=== PATIENT | female | born 2000 | race American Indian/Alaskan Native ===

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

== ENCOUNTER 2021-01-11 06:58 | Inpatient (IN) | payer MEDICAID ==
[2021-01-11] MEDS ORDERED: Misoprostol 400 MCG (4 X 100 MCG TAB) RECTAL PRN ×3 (09:00→23:02)
[2021-01-11] MEDS ORDERED: Methylergonovine 0.2 MG/1 ML Amp IM PRN (09:00)
[2021-01-11] MEDS ORDERED: Ondansetron 4 MG/2 ML SDV IVPUSH PRN ×2 (09:00→09:05)
[2021-01-11] MEDS ORDERED: Oxytocin/Normal Saline 30 UNIT/500 ML BAG IV SCH (09:00)
[2021-01-11] MEDS ORDERED: fentaNYL 100 MCG/2 ML SDV IVPUSH PRN (09:00)
[2021-01-11] MEDS ORDERED: Carboprost Tromethamine 250 MCG/1 ML Amp IM PRN ×3 (09:00→23:02)
[2021-01-11] MEDS ORDERED: Lidocaine 1% 30 ML SDV INJECT PRN (09:00)
[2021-01-11] MEDS ORDERED: Tranexamic Acid 1,000 MG in Sodium Chloride 0.9% 100 ML IV PRN ×3 (09:00→23:02)
[2021-01-11] MEDS ORDERED: Sodium Chloride 0.9% 10 ML Syringe FLUSH PRN ×3 (09:00→23:02)
[2021-01-11] MEDS ORDERED: Naloxone 2 MG/2 ML Syringe IVPUSH PRN (09:05)
[2021-01-11] MEDS ORDERED: ePHEDrine 50 MG/ML SDV IVPUSH PRN (09:05)
[2021-01-11] MEDS ORDERED: Promethazine 25 MG/ML SDV IM PRN (09:05)
[2021-01-11] MEDS ORDERED: Lactated Ringers 500 ML IV SCH ×2 (09:15)
[2021-01-11] MEDS: Lactated Ringers 1,000 ML IV SCH ×2 (09:25→18:23)
--- NOTE | 2021-01-11 12:26 | PCM.LDHP ---
L&D History of Present Illness - General Date of Service: 01/11/21 Admit Problem/Dx: Patient Status Order with Admit Dx/Problem 01/11/21 09:00 Patient Status [ADT] Routine Admission Diagnosis/Problem Admission Diagnosis/Problem High risk Source of Information: Patient - History of Present Illness Introduction:: Oksana Prince is a 21 year old female at 39w0d who presents today for induction of labor. She states things have been going well. She has had an intermittent headache since about 30 weeks. She feels this is improved. She has no concerns today. She has been feeling adequate movement. She denies any contractions, leakage of fluid, or vaginal bleeding. Her last was complicated by HELLP syndrome. Liver enzymes have been elevated this but are downtrending. Last PCR was 0.2 - Related Data Allergies/Adverse Reactions: Allergies Allergy/AdvReac Type Severity Reaction Status Date / Time No Known Allergies Allergy Verified 01/11/21 08:13 Home Medications: Home Meds Acetaminophen [Tylenol] 650 mg PO Q4H 03/05/16 [History] #103/Iron Fumarate/Fa [ ] 1 tab PO DAILY 07/23/20 [History] Past Medical History - Past Health History Medical/Surgical History: Denies Medical/Surgical History HEENT History: Reports: Otitis Media, Other (See Below) Other HEENT History: recurrent upper respiratory infections Cardiovascular History: Reports: Hypertension Other Cardiovascular History: HELLP syndrome with last Respiratory History: Reports: Asthma Gastrointestinal History: Reports: Other (See Below) Other Gastrointestinal History: HELLP syndrome with elevated liver enzymes last Genitourinary History: Reports: [employer] History: Reports: Musculoskeletal History: Reports: None Neurological History: Reports: None Psychiatric History: Reports: Depression Endocrine/Metabolic History: Reports: None Hematologic History: Reports: Other (See Below) Other Hematologic History: HELLP syndrome with last Immunologic History: Reports: None Oncologic (Cancer) History: Reports: None Dermatologic History: Reports: None - Infectious Disease History Infectious Disease History: Reports: None - Past Surgical History Head Surgeries/Procedures: Reports: None HEENT Surgical History: Reports: None Cardiovascular Surgical History: Reports: None Respiratory Surgical History: Reports: None GI Surgical History: Reports: Appendectomy Female Surgical History: Reports: None Other Female Surgeries/Procedures: 05/03/2018 IUD for Control. Endocrine Surgical History: Reports: None Neurological Surgical History: Reports: None Musculoskeletal Surgical History: Reports: None Oncologic Surgical History: Reports: None Dermatological Surgical History: Reports: None Social & Family History - Family History Family Medical History: No Pertinent Family History - Tobacco Use Tobacco Use Status *Q: Never Tobacco User - Caffeine Use Caffeine Use: Reports: Soda - Recreational Drug Use Recreational Drug Use: No - Living Situation & Occupation Living situation: Reports: with Family Occupation: Student H&P Review of Systems - Review of Systems: Review Of Systems: See Below General: Denies: Fever, Chills HEENT: Denies: Visual Changes Pulmonary: Denies: Shortness of Breath, Wheezing Cardiovascular: Denies: Chest Pain Gastrointestinal: Denies: Abdominal Pain, Nausea, Vomiting Genitourinary: Denies: Dysuria, Frequency, Burning Skin: Denies: Cyanosis, Rash L&D Exam - Exam Exam: See Below - Vital Signs Vital Signs: Last Vital Signs Temp 97.7 F 01/11/21 09:30 Pulse 92 01/11/21 11:30 Resp 16 01/11/21 11:30 BP 116/91 H 01/11/21 11:30 Pulse Ox Weight: 199 lb - OB Specific Contraction Duration (sec): 60 Contraction Frequency (min): 3.5-5 Contraction Intensity: Mild to Moderate Heart Tones per Min: 135 Heart Rate (FHR) Variability: Moderate (6-25 bmp) Presentation: Vertex - Rosado Score Rosado Score Cervix Position: Midposition Rosado Score Consistency: Firm Rosado Score Effacement: 51-70% Rosado Score Dilation: 3-4 cm Rosado Score 's Station: -2 Rosado Score Total: 6 - Exam General: Alert, Oriented HEENT: Conjunctiva Clear, Pupils Equal Neck: Supple Lungs: Clear to Auscultation, Normal Respiratory Effort Cardiovascular: Regular Rate, Regular Rhythm GI/Abdominal Exam: Normal Bowel Sounds, Soft Skin: Warm, Dry Psychiatric: Alert, Normal Mood - Patient Data Lab Results Last 24 hrs: Laboratory Results - last 24 hr 01/11/21 01/11/21 Range/Units 07:15 07:59 WBC 15.4 H (5.0-10.0) 10^3/uL RBC 4.72 (4.2-5.4) 10^6/uL Hgb 12.7 (12.0-16.0) g/dL Hct 38.5 (37.0-47.0) % MCV 81.6 (80-100) fL MCH 26.9 L (27.0-34.0) pg MCHC 33.0 (33.0-35.0) g/dL Plt Count 182 (150-450) 10^3/uL SARS-CoV-2 RNA (MARKY) Negative (NEGATIVE) Result Diagrams: 01/11/21 07:59 Problem List Initiated/Reviewed/Updated: Yes Orders Last 24hrs: Active Orders 24 hr Category Date Time Status Patient Status [ADT] Routine ADT 01/11/21 09:00 Active Communication Order [RC] ASDIRECTED Care 01/11/21 09:00 Active Communication Order [RC] ASDIRECTED Care 01/11/21 09:03 Active Communication Order [RC] ASDIRECTED Care 01/11/21 09:03 Active Communication Order [RC] ASDIRECTED Care 01/11/21 09:03 Active Communication Order [RC] ASDIRECTED Care 01/11/21 09:03 Active Communication Order [RC] PER UNIT ROUTINE Care 01/11/21 09:05 Active Communication Order [RC] PER UNIT ROUTINE Care 01/11/21 09:05 Active Communication Order [RC] PER UNIT ROUTINE Care 01/11/21 09:05 Active Communication Order [RC] PER UNIT ROUTINE Care 01/11/21 09:08 Active Communication Order [RC] PER UNIT ROUTINE Care 01/11/21 09:08 Active Communication Order [RC] PER UNIT ROUTINE Care 01/11/21 09:08 Active Heart Rate [RC] Click to Edit Care 01/11/21 09:05 Active Nitrous Oxide Delivery [RC] ASDIRECTED Care 01/11/21 09:08 Active Notify Provider Vital Signs OB [RC] ASDIRECTED Care 01/11/21 09:00 Active Notify Provider [RC] PRN Care 01/11/21 09:00 Active Notify Provider [RC] PRN Care 01/11/21 09:03 Active Oxygen Therapy [RC] ASDIRECTED Care 01/11/21 09:08 Active Pulse Oximetry [RC] ASDIRECTED Care 01/11/21 09:08 Active Pump Management, Intrathecal [RC] ASDIRECTED Care 01/11/21 09:01 Active Up With Assistance [RC] ASDIRECTED Care 01/11/21 09:05 Active Up ad Grisel [RC] ASDIRECTED Care 01/11/21 09:00 Active Up ad Grisel [RC] PER UNIT ROUTINE Care 01/11/21 09:03 Active Vaginal Exam [RC] PRN Care 01/11/21 09:03 Active Verify Patient Consent Obtain [RC] ASDIRECTED Care 01/11/21 09:05 Active Verify Patient Consent Obtain [RC] ASDIRECTED Care 01/11/21 09:08 Active Vital Signs [RC] PER UNIT ROUTINE Care 01/11/21 09:00 Active Regular Diet [DIET] Diet 01/11/21 Breakfast Active Acetaminophen [TylenoL] Med 01/11/21 09:00 Active 650 mg PO Q4H PRN Carboprost Tromethamine [Hemabate DS] Med 01/11/21 09:00 Active 250 mcg IM ASDIRECTED PRN Lactated Ringers [Ringers, Lactated] 1,000 ml Med 01/11/21 09:00 Active IV ASDIRECTED Lactated Ringers [Ringers, Lactated] 500 ml Med 01/11/21 09:15 Active IV .BOLUS Lactated Ringers [Ringers, Lactated] 500 ml Med 01/11/21 09:15 Active IV SEECOMMENT Lidocaine 1% [Xylocaine-MPF 1%] Med 01/11/21 09:00 Active 30 ml INJECT ASDIRECTED PRN Methylergonovine [Methergine] Med 01/11/21 09:00 Active 0.2 mg IM ASDIRECTED PRN Naloxone [Narcan] Med 01/11/21 09:05 Active 0.1 mg IVPUSH SEECOMMENT PRN Ondansetron [Zofran] Med 01/11/21 09:00 Active 4 mg IVPUSH Q4H PRN Oxytocin/Normal Saline [Pitocin in NS 30 UNIT/500 ML] Med 01/11/21 09:00 Active 30 unit in 500 ml IV TITRATE Promethazine [Phenergan] Med 01/11/21 09:05 Active 12.5 mg IM Q6H PRN Sodium Chloride 0.9% [Saline Flush] Med 01/11/21 09:00 Active 10 ml FLUSH ASDIRECTED PRN Tranexamic Acid [Cyklokapron] 1,000 mg Med 01/11/21 09:00 Active Sodium Chloride 0.9% [Normal Saline] 100 ml IV ONETIME ePHEDrine [ePHEDrine sulfate] Med 01/11/21 09:05 Active 5 mg IVPUSH Q5M PRN fentaNYL [Sublimaze] Med 01/11/21 09:00 Active 100 mcg IVPUSH Q1H PRN miSOPROStoL [Cytotec] Med 01/11/21 09:00 Active 800 mcg RECTAL ASDIRECTED PRN Blood Pressure [OM.PC] Routine Oth 01/11/21 09:05 Ordered Saline Lock Insert [OM.PC] Routine Oth 01/11/21 09:00 Ordered Resuscitation Status Routine Resus Stat 01/11/21 09:00 Ordered Medication Orders Acetaminophen (Acetaminophen 325 Mg Tab) 650 mg PO Q4H PRN PRN Reason: Pain (Mild 1-3) and fever Carboprost Tromethamine (Carboprost Tromethamine 250 Mcg/1 Ml Amp) 250 mcg IM ASDIRECTED PRN PRN Reason: HEMORRHAGE Ephedrine Sulfate (Ephedrine 50 Mg/Ml Sdv) 5 mg IVPUSH Q5M PRN PRN Reason: See Label Comments Fentanyl (Fentanyl 100 Mcg/2 Ml Sdv) 100 mcg IVPUSH Q1H PRN PRN Reason: Pain (moderate 4-6) Lactated Ringer's (Ringers, Lactated) 1,000 mls @ 125 mls/hr IV ASDIRECTED RUBEN Last Admin: 01/11/21 09:25 Dose: 125 mls/hr Documented by: ERICROX Tranexamic Acid 1,000 mg/ (Sodium Chloride) 110 mls @ 660 mls/hr IV ONETIME PRN PRN Reason: Bleeding Oxytocin/Sodium Chloride (Pitocin In Ns 30 Unit/500 Ml) 30 unit in 500 mls @ 2 mls/hr IV TITRATE RUBEN; Protocol Last Titration: 01/11/21 11:00 Dose: 6 munits/min, 6 mls/hr Documented by: Titration: 01/11/21 10:00 Dose: 4 munits/min, 4 mls/hr Documented by: Admin: 01/11/21 09:25 Dose: 2 munits/min, 2 mls/hr Documented by: ERICROX Lactated Ringer's (Ringers, Lactated) 500 mls @ 999 mls/hr IV SEECOMMENT RUBEN Lactated Ringer's (Ringers, Lactated) 500 mls @ 999 mls/hr IV .BOLUS RUBEN Lidocaine HCl (Lidocaine 1% 30 Ml Sdv) 30 ml INJECT ASDIRECTED PRN PRN Reason: Perineal Repair Methylergonovine Maleate (Methylergonovine 0.2 Mg/1 Ml Amp) 0.2 mg IM ASDIRECTED PRN PRN Reason: Hemorrhage Misoprostol (Misoprostol 400 Mcg (4 X 100 Mcg Tab)) 800 mcg RECTAL ASDIRECTED PRN PRN Reason: Hemorrhage Naloxone HCl (Naloxone 2 Mg/2 Ml Syringe) 0.1 mg IVPUSH SEECOMMENT PRN PRN Reason: Respiratory Depression Ondansetron HCl (Ondansetron 4 Mg/2 Ml Sdv) 4 mg IVPUSH Q4H PRN PRN Reason: Nausea/Vomiting Promethazine HCl (Promethazine 25 Mg/Ml Sdv) 12.5 mg IM Q6H PRN PRN Reason: Nausea/Vomiting Sodium Chloride (Sodium Chloride 0.9% 10 Ml Syringe) 10 ml FLUSH ASDIRECTED PRN PRN Reason: Keep Vein Open Assessment/Plan Comment:: Assessment: Oksana Prince is a 21 year old female here for induction of labor, complicated by elevated liver enzymes and headache. History of HELLP in prior . heart tones category 1. 1. 39 weeks gestation 2. GBS negative status 3. Elevated liver enzymes which are downtrending, liver ultrasound WNL 4. Headaches in 5. History of pre-eclampsia in prior 6. History of HELLP in prior Plan: 1. We'll admit to labor and delivery for induction of labor in term 2. Obtain CBC 3. Monitor with EFM and [place] 4. Will place IV and start Pitocin 5. Plan for AROM when able 6. Expect
--- NOTE | 2021-01-11 12:43 | PCM.PNLD ---
Labor Progress Note - VS & Meds Vital Signs: Last Vital Signs Temp 97.7 F 01/11/21 09:30 Pulse 92 01/11/21 11:30 Resp 16 01/11/21 11:30 BP 116/91 H 01/11/21 11:30 Pulse Ox Active Medications: Current Medications Acetaminophen (Acetaminophen 325 Mg Tab) 650 mg PO Q4H PRN PRN Reason: Pain (Mild 1-3) and fever Carboprost Tromethamine (Carboprost Tromethamine 250 Mcg/1 Ml Amp) 250 mcg IM ASDIRECTED PRN PRN Reason: HEMORRHAGE Ephedrine Sulfate (Ephedrine 50 Mg/Ml Sdv) 5 mg IVPUSH Q5M PRN PRN Reason: See Label Comments Fentanyl (Fentanyl 100 Mcg/2 Ml Sdv) 100 mcg IVPUSH Q1H PRN PRN Reason: Pain (moderate 4-6) Lactated Ringer's (Ringers, Lactated) 1,000 mls @ 125 mls/hr IV ASDIRECTED RUBEN Last Admin: 01/11/21 09:25 Dose: 125 mls/hr Documented by: Tranexamic Acid 1,000 mg/ (Sodium Chloride) 110 mls @ 660 mls/hr IV ONETIME PRN PRN Reason: Bleeding Oxytocin/Sodium Chloride (Pitocin In Ns 30 Unit/500 Ml) 30 unit in 500 mls @ 2 mls/hr IV TITRATE [facility]; Protocol Last Titration: 01/11/21 11:00 Dose: 6 munits/min, 6 mls/hr Documented by: Lactated Ringer's (Ringers, Lactated) 500 mls @ 999 mls/hr IV SEECOMMENT RUBEN Lactated Ringer's (Ringers, Lactated) 500 mls @ 999 mls/hr IV .BOLUS [facility] Lidocaine HCl (Lidocaine 1% 30 Ml Sdv) 30 ml INJECT ASDIRECTED PRN PRN Reason: Perineal Repair Methylergonovine Maleate (Methylergonovine 0.2 Mg/1 Ml Amp) 0.2 mg IM ASDIRECTED PRN PRN Reason: Hemorrhage Misoprostol (Misoprostol 400 Mcg (4 X 100 Mcg Tab)) 800 mcg RECTAL ASDIRECTED PRN PRN Reason: Hemorrhage Naloxone HCl (Naloxone 2 Mg/2 Ml Syringe) 0.1 mg IVPUSH SEECOMMENT PRN PRN Reason: Respiratory Depression Ondansetron HCl (Ondansetron 4 Mg/2 Ml Sdv) 4 mg IVPUSH Q4H PRN PRN Reason: Nausea/Vomiting Promethazine HCl (Promethazine 25 Mg/Ml Sdv) 12.5 mg IM Q6H PRN PRN Reason: Nausea/Vomiting Sodium Chloride (Sodium Chloride 0.9% 10 Ml Syringe) 10 ml FLUSH ASDIRECTED PRN PRN Reason: Keep Vein Open Discontinued Medications Lactated Ringer's (Ringers, Lactated) 1,000 mls @ 999 mls/hr IV BOLUS ONE Stop: 01/11/21 10:00 - Uterine Contractions Uterine Monitoring Mode: External [place], Palpation Contraction Frequency (min): 3.5-5 Contraction Duration (sec): 60 Contraction Intensity: Mild to Moderate Uterine Resting Tone: Soft - Monitoring Heart Rate (FHR) Baseline: 130 Heart Rate (FHR) Variability: Moderate (6-25 bmp) - Vaginal Exam Dilation (cm): 3.5 Effacement (Percent): 60 Station: -2 Cervical Position: Midposition Sterile Vaginal Exam Performed By: Meghana Lorenzo - Labor Progress (Free Text) Labor Progress: Subjective: Oksana is feeling her contractions. She is getting more uncomfortable. She has no other concerns. Objective: Cervix: 3.5/60%/-2 FHT: 130 BPM, accels present, no decels. Category 1 [place]: Contractions tracing intermittently, patient reports feeling contractions every 3 minutes. Verbal consent was obtained from the patient. Risks and benefits of the procedure were reviewed with the patient including potential complications from amniotomy such as infection, decelerations of the heart rate, potential for cord prolapse, and bleeding. SVE was performed confirming a cervix dilation of 3.5cm. There were intact membranes with adequate bulging amniotic sac for rupture. No cord was palpated. Vertex presentation. The procedure was performed using an amnihook in the usual fashion. The amniotic and chorionic membranes were split easily, releasing fluid of clear coloration. One small hugo was required before the membranes gave way. Patient and baby tolerated the procedure well. Assessment/Plan: AROM performed with clear fluid. Two variable decelerations occurred in the minutes after rupture. We'll continue to monitor closely. Continue current cares
[2021-01-11] MEDS: Lactated Ringers 1,000 ML IV ONE ×2 (14:11→18:24)
[2021-01-11] MEDS ORDERED: EPINEPHrine 1 MG/1 ML Amp ONE ×3 (15:02→18:33)
[2021-01-11] MEDS ORDERED: fentaNYL 100 MCG/2 ML SDV ONE ×2 (15:02→18:33)
[2021-01-11] MEDS ORDERED: fentaNYL 100 MCG/2 ML SDV ITHECAL ONE (15:10)
--- NOTE | 2021-01-11 16:09 | PCM.PRNOTE ---
- Free Text/Narrative Note: Requested to provide analgesia to full term patient in severe pain. Upon entering the room, patient is sitting on edge of bed complaining of severe abdominal/pelvic pain and discomfort. Procedure was discussed with patient including adverse outcomes and expectations. Pt consented to analgesia, SAB/IT. Pt placed into a proper sitting position. Landmarks for SAB/IT were identified and marked. Hands were washed and appropriate PPE was applied. Back was prepped with betadine x3. A sterile, transparent, fenestrated drape was applied. Excess betadine was removed. Using 3 mL of a 1% lidocaine solution, a skin wheel was placed at the L2/L3 interspace. A 24 ga (4 inch) Pencan spinal needle was inserted until positive for CSF. Negative for heme or paresthesias. Injected fentanyl 15 mcg, sufentanil 15 mcg, and 6 mg of a 0.75% bupivacaine solution with an epi wash. Pt was placed left lateral tilt position for approximately 20 minutes. PT had no hypotension but did develop variable decels, similar to AROM time frame. Will continue to monitor. Procedure Date & Time: 01/11/21 [id number]
--- NOTE | 2021-01-11 19:09 | PCM.PRNOTE ---
- Free Text/Narrative Note: Requested to provide analgesia to full term patient in severe pain. Upon entering the room, patient is sitting on edge of bed complaining of severe abdominal/pelvic pain and discomfort. Procedure was discussed with patient including adverse outcomes and expectations. Pt consented to analgesia, SAB/IT. Pt placed into a proper sitting position. Landmarks for SAB/IT were identified and marked. Hands were washed and appropriate PPE was applied. Back was prepped with betadine x3. A sterile, transparent, fenestrated drape was applied. Excess betadine was removed. Using 3 mL of a 1% lidocaine solution, a skin wheel was placed at the L2/L3 interspace. A 24 ga (4 inch) Pencan spinal needle was inserted until positive for CSF. Negative for heme or paresthesias. Injected sufentanil 25 mcg and 6 mg of a 0.75% bupivacaine solution. Pt was placed left lateral tilt position for approximately 20 minutes. There were zero complications or adverse outcomes. Will continue to monitor. Procedure Date & Time: 01/11/21 [id number]
[2021-01-11] MEDS ORDERED: Acetaminophen 325 MG Tab PO PRN ×3 (21:05→23:43)
[2021-01-11] MEDS ORDERED: Docusate Sodium 100 MG Cap PO PRN (21:05)
[2021-01-11] MEDS ORDERED: Benzocaine/Menthol 20%-0.5% Spray 56 GM Canister TOP PRN ×2 (21:05→23:02)
[2021-01-11] MEDS ORDERED: Zolpidem 5 MG Tab PO PRN ×2 (21:05→23:02)
[2021-01-11] MEDS ORDERED: Ibuprofen 800 MG Tab PO PRN (21:05)
[2021-01-11] MEDS ORDERED: Oxytocin 10 Units/1 ML SDV IM PRN ×2 (21:05→23:02)
[2021-01-11] MEDS ORDERED: Simethicone 80 MG Tab.Chew PO PRN ×2 (21:05→23:02)
--- NOTE | 2021-01-11 21:11 | PCM.DEL ---
L & D Note - General Info Date of Service: 01/11/21 - Delivery Note Labor: Induced by ARM, Induced by Oxytocin Delivery Outcome: Livebirth Infant Delivery Method: Spontaneous Vaginal Delivery-Single Presentation: Right Occiput Anterior (BANDAR) Nuchal Cord: None Anesthesia Type: Intrathecal Amniotic Fluid Description: Clear Episiotomy Type: None Laceration: Cervical (5 o'clock position, repaired), Periurethral (right) Placenta: Intact Cord: 3 Vessels Resuscitation Needed: No : Bulb Syringe, Stimulated - General Info Date of Service: 01/11/21 Subjective Update: Oksana Prince is a 21 year old female G2 now P2 at 39w0d who presented for induction of labor on 01/11/2021. Category 1 tracing on admission. She was dilated to 3.5cm on admission. Her induction was started with pitocin. Artificial rupture of membranes at 3.5cm with clear fluid. She requested and received intrathecal. She progressed to complete dilation without complication. She began pushing and delivered a liveborn male infant from the BANDAR position over intact perineum. Vigorous infant with spontaneous cry after bulb suction. Placenta delivered spontaneously intact with a 3 vessel cord. IV Pitocin was started shortly after delivery of the placenta. There was brisk bleeding following delivery of the placenta. It initially improved with fundal and bimanual massage. However, bleeding continued shortly thereafter. She received 800mcg of rectal cytotec. Bleeding improved but continued to trickle despite firm uterus. Vagina was explored to evaluate for other lacerations. Posterior cervical laceration at approximately 5 o'clock was noted. This was repaired in a figure of eight fashion. Hemostasis was confirmed. Mother and infant doing well. Functional Status: Reports: Pain Controlled - Patient Data Vitals - Most Recent: Last Vital Signs Temp 96.6 F L 01/11/21 15:20 Pulse 87 01/11/21 19:00 Resp 16 01/11/21 19:00 BP 118/66 01/11/21 19:00 Pulse Ox 100 01/11/21 19:00 Weight - Most Recent: 199 lb Lab Results Last 24 Hours: Laboratory Results - last 24 hr 01/11/21 01/11/21 Range/Units 07:15 07:59 WBC 15.4 H (5.0-10.0) 10^3/uL RBC 4.72 (4.2-5.4) 10^6/uL Hgb 12.7 (12.0-16.0) g/dL Hct 38.5 (37.0-47.0) % MCV 81.6 (80-100) fL MCH 26.9 L (27.0-34.0) pg MCHC 33.0 (33.0-35.0) g/dL Plt Count 182 (150-450) 10^3/uL SARS-CoV-2 RNA (MARKY) Negative (NEGATIVE) Med Orders - Current: Current Medications Acetaminophen (Acetaminophen 325 Mg Tab) 650 mg PO Q4H PRN PRN Reason: Pain (Mild 1-3) and fever Acetaminophen (Acetaminophen 325 Mg Tab) 650 mg PO Q6H PRN PRN Reason: Pain/Fever Benzocaine/Menthol (Benzocaine/Menthol 20%-0.5% [place] 56 Gm Canister) 0 gm TOP Q4H PRN PRN Reason: Perineal comfort measures Carboprost Tromethamine (Carboprost Tromethamine 250 Mcg/1 Ml Amp) 250 mcg IM ASDIRECTED PRN PRN Reason: HEMORRHAGE Carboprost Tromethamine (Carboprost Tromethamine 250 Mcg/1 Ml Amp) 250 mcg IM ASDIRECTED PRN PRN Reason: Excessive vaginal bleeding Docusate Sodium (Docusate Sodium 100 Mg Cap) 100 mg PO BID PRN PRN Reason: Constipation Ephedrine Sulfate (Ephedrine 50 Mg/Ml Sdv) 5 mg IVPUSH Q5M PRN PRN Reason: See Label Comments Fentanyl (Fentanyl 100 Mcg/2 Ml Sdv) 100 mcg IVPUSH Q1H PRN PRN Reason: Pain (moderate 4-6) Last Admin: 01/11/21 13:54 Dose: 100 mcg Documented by: Lactated Ringer's (Ringers, Lactated) 1,000 mls @ 125 mls/hr IV ASDIRECTED RUBEN Last Admin: 01/11/21 18:23 Dose: 125 mls/hr Documented by: Tranexamic Acid 1,000 mg/ (Sodium Chloride) 110 mls @ 660 mls/hr IV ONETIME PRN PRN Reason: Bleeding Oxytocin/Sodium Chloride (Pitocin In Ns 30 Unit/500 Ml) 30 unit in 500 mls @ 2 mls/hr IV TITRATE RUBEN; Protocol Last Titration: 05/19/21 20:40 Dose: 250 munits/min, 250 mls/hr Documented by: Lactated Ringer's (Ringers, Lactated) 500 mls @ 999 mls/hr IV SEECOMMENT RUBEN Lactated Ringer's (Ringers, Lactated) 500 mls @ 999 mls/hr IV .BOLUS RUBEN Tranexamic Acid 1,000 mg/ (Sodium Chloride) 110 mls @ 660 mls/hr IV ONETIME PRN PRN Reason: Bleeding Ibuprofen (Ibuprofen 800 Mg Tab) 800 mg PO Q8H PRN PRN Reason: Pain Lidocaine HCl (Lidocaine 1% 30 Ml Sdv) 30 ml INJECT ASDIRECTED PRN PRN Reason: Perineal Repair Methylergonovine Maleate (Methylergonovine 0.2 Mg/1 Ml Amp) 0.2 mg IM ASDIRECTED PRN PRN Reason: Hemorrhage Misoprostol (Misoprostol 400 Mcg (4 X 100 Mcg Tab)) 800 mcg RECTAL ASDIRECTED PRN PRN Reason: Hemorrhage Last Admin: 01/11/21 20:43 Dose: 800 mcg Documented by: Misoprostol (Misoprostol 400 Mcg (4 X 100 Mcg Tab)) 800 mcg RECTAL ONETIME PRN PRN Reason: Hemorrhage Naloxone HCl (Naloxone 2 Mg/2 Ml Syringe) 0.1 mg IVPUSH SEECOMMENT PRN PRN Reason: Respiratory Depression Ondansetron HCl (Ondansetron 4 Mg/2 Ml Sdv) 4 mg IVPUSH Q4H PRN PRN Reason: Nausea/Vomiting Last Admin: 01/11/21 14:07 Dose: 4 mg Documented by: Oxytocin (Oxytocin 10 Units/1 Ml Sdv) 10 unit IM ONETIME PRN PRN Reason: Bleeding Prenat Multivit/Medical Sales Associate/Iron/Folic Ac ( Multivitamin With Calcium/Folic Acid/Iron Tab) 1 each PO DAILY [facility] Promethazine HCl (Promethazine 25 Mg/Ml Sdv) 12.5 mg IM Q6H PRN PRN Reason: Nausea/Vomiting Simethicone (Simethicone 80 Mg Tab.Chew) 80 mg PO Q4H PRN PRN Reason: Gas Sodium Chloride (Sodium Chloride 0.9% 10 Ml Syringe) 10 ml FLUSH ASDIRECTED PRN PRN Reason: Keep Vein Open Sodium Chloride (Sodium Chloride 0.9% 10 Ml Syringe) 10 ml FLUSH ASDIRECTED PRN PRN Reason: Keep Vein Open Zolpidem Tartrate (Zolpidem 5 Mg Tab) 5 mg PO BEDTIME PRN PRN Reason: Insomnia Discontinued Medications Epinephrine HCl (Epinephrine 1 Mg/1 Ml Amp) Confirm Administered Dose 1 mg .ROUTE .STK-MED ONE Stop: 01/11/21 15:03 Epinephrine HCl (Epinephrine 1 Mg/1 Ml Amp) Confirm Administered Dose 1 mg .ROUTE .STK-MED ONE Stop: 01/11/21 18:34 Fentanyl (Fentanyl 100 Mcg/2 Ml Sdv) Confirm Administered Dose 100 mcg .ROUTE .STK-MED ONE Stop: 01/11/21 15:03 Fentanyl (Fentanyl 100 Mcg/2 Ml Sdv) Confirm Administered Dose 100 mcg .ROUTE .STK-MED ONE Stop: 01/11/21 18:34 Lactated Ringer's (Ringers, Lactated) 1,000 mls @ 999 mls/hr IV BOLUS ONE Stop: 01/11/21 10:00 Last Admin: 01/11/21 18:24 Dose: 999 mls/hr Documented by: Sufentanil Citrate (Sufentanil 50 Mcg/1 Ml Amp) Confirm Administered Dose 50 mcg .ROUTE .STK-MED ONE Stop: 01/11/21 15:03 Sufentanil Citrate (Sufentanil 50 Mcg/1 Ml Amp) Confirm Administered Dose 50 mcg .ROUTE .STK-MED ONE Stop: 01/11/21 18:34 - Problem List Review Problem List Initiated/Reviewed/Updated: Yes - My Orders Last 24 Hours: My Active Orders 01/11/21 Breakfast Regular Diet [DIET] 01/11/21 07:59 BILE ACIDS [REF] Routine 01/11/21 Lunch Regular Diet [DIET] 01/11/21 Dinner Regular Diet [DIET] 01/11/21 21:01 Patient Status Manage Transfer [TRANSFER] Routine 01/11/21 21:05 Notify Provider Vital Signs OB [RC] ASDIRECTED Up ad Grisel [RC] ASDIRECTED Vital Signs [RC] PFP CBC W/O DIFF,HEMOGRAM [HEME] Routine Acetaminophen [TylenoL] 650 mg PO Q6H PRN Benzocaine/Menthol [Dermoplast Pain Relief [place]] See Dose Instructions TOP Q4H PRN Carboprost Tromethamine [Hemabate DS] 250 mcg IM ASDIRECTED PRN Docusate Sodium [Colace] 100 mg PO BID PRN Ibuprofen [Motrin] 800 mg PO Q8H PRN Oxytocin [Pitocin] 10 unit IM ONETIME PRN Simethicone 80 mg PO Q4H PRN Sodium Chloride 0.9% [Saline Flush] 10 ml FLUSH ASDIRECTED PRN Tranexamic Acid [Cyklokapron] 1,000 mg Sodium Chloride 0.9% [Normal Saline] 100 ml IV ONETIME Zolpidem [Ambien] 5 mg PO BEDTIME PRN miSOPROStoL [Cytotec] 800 mcg RECTAL ONETIME PRN Assess Lochia [WOMSER] Per Unit Routine Assess Uterine Involution [WOMSER] Per Unit Routine Breast Pump [WOMSER] Per Unit Routine Ice Therapy [OM.PC] Per Unit Routine Perineal Care [OM.PC] Per Unit Routine Saline Lock Insert [OM.PC] Urgent Sitz Bath [OM.PC] Per Unit Routine 01/12/21 09:00 Vit with Ca/FA/Iron [ Plus Iron] 1 each PO DAILY - Assessment Assessment:: Oksana Prince is a 21 year old female who was admitted for induction of labor, now s/p with cervical laceration. 1. 39 weeks gestation , now s/p 2. GBS negative status 3. Cervical laceration noted at delivery, repaired with figure of eight 4. Elevated liver enzymes which are downtrending, liver ultrasound WNL 5. Headaches in 6. History of pre-eclampsia in prior 7. History of HELLP in prior
[2021-01-11] MEDS ORDERED: Acetaminophen 325 MG Tab PO SCH (22:45)
[2021-01-12] MEDS: Ibuprofen 800 MG Tab PO PRN ×3 (00:50→20:37)
[2021-01-12] MEDS: Docusate Sodium 100 MG Cap PO PRN ×3 (00:50→20:38)
--- NOTE | 2021-01-12 08:17 | PCM.PNPP ---
- General Info Date of Service: 01/12/21 Subjective Update: Oksana Prince is a 21 year old female at 39w0d who is day #1 from [facility] She reports that her lochia is moderate in degree. She is working on . She is up and ambulating well, tolerating oral intake, and using the restroom. She has had good bowel sounds and passing gas. She has not yet had a bowel movement. She has some nasal congestion this morning but otherwise denies any other concerns. Functional Status: Reports: Pain Controlled - Review of Systems General: Denies: Fever, Fatigue, Chills HEENT: Reports: Sinus Congestion. Denies: Headaches, Visual Changes Pulmonary: Denies: Shortness of Breath, Cough Cardiovascular: Denies: Chest Pain, Dyspnea on Exertion, Lightheadedness Gastrointestinal: Denies: Abdominal Pain, Nausea, Vomiting Genitourinary: Denies: Dysuria, Frequency, Burning Skin: Denies: Cyanosis, Rash Neurological: Denies: Confusion, Dizziness, Headache, Numbness, Tingling Psychiatric: Denies: No Symptoms - General Info Date of Service: 01/12/21 - Patient Data Vital Signs - Most Recent: Last Vital Signs Temp 97.6 F 01/12/21 07:57 Pulse 88 01/12/21 07:57 Resp 16 01/12/21 07:57 BP 121/74 01/12/21 07:57 Pulse Ox 100 01/12/21 07:57 Weight - Most Recent: 199 lb I&O - Last 24 Hours: Intake & Output 01/11/21 01/12/21 01/12/21 22:59 06:59 14:59 Output Total Balance P Lab Results - Last 24 Hours: Laboratory Results - last 24 hr 01/11/21 01/12/21 01/12/21 Range/Units 07:59 01:58 07:12 WBC 15.4 H 19.6 H 16.1 H (5.0-10.0) 10^3/uL RBC 4.72 3.53 L 3.41 L (4.2-5.4) 10^6/uL Hgb 12.7 9.6 L D 9.3 L (12.0-16.0) g/dL Hct 38.5 29.0 L 28.3 L (37.0-47.0) % MCV 81.6 82.2 83.0 (80-100) fL MCH 26.9 L 27.2 27.3 (27.0-34.0) pg MCHC 33.0 33.1 32.9 L (33.0-35.0) g/dL Plt Count 182 188 180 (150-450) 10^3/uL Neut % (Auto) 82.2 H (42.2-75.2) % Lymph % (Auto) 10.3 L (20.5-50.1) % [place] % (Auto) 7.0 (2-8) % Eos % (Auto) 0.4 L (1.0-3.0) % Baso % (Auto) 0.1 (0.0-1.0) % Med Orders - Current: Current Medications Acetaminophen (Acetaminophen 325 Mg Tab) 650 mg PO Q4H PRN PRN Reason: Pain (Mild 1-3) and fever Benzocaine/Menthol (Benzocaine/Menthol 20%-0.5% [place] 56 Gm Canister) 0 gm TOP Q4H PRN PRN Reason: Perineal comfort measures Last Admin: 01/12/21 00:51 Dose: 1 spray Documented by: Carboprost Tromethamine (Carboprost Tromethamine 250 Mcg/1 Ml Amp) 250 mcg IM ASDIRECTED PRN PRN Reason: Excessive vaginal bleeding Docusate Sodium (Docusate Sodium 100 Mg Cap) 100 mg PO BID PRN PRN Reason: Constipation Last Admin: 01/12/21 00:50 Dose: 100 mg Documented by: Oxytocin/Sodium Chloride (Pitocin In Ns 30 Unit/500 Ml) 30 unit in 500 mls @ 2 mls/hr IV TITRATE RUBEN; Protocol Last Titration: 01/11/21 22:02 Dose: Infused Documented by: Tranexamic Acid 1,000 mg/ (Sodium Chloride) 110 mls @ 660 mls/hr IV ONETIME PRN PRN Reason: Bleeding Ibuprofen (Ibuprofen 800 Mg Tab) 800 mg PO Q8H PRN PRN Reason: Pain Last Admin: 01/12/21 00:50 Dose: 800 mg Documented by: Methylergonovine Maleate (Methylergonovine 0.2 Mg/1 Ml Amp) 0.2 mg IM ASDIRECTED PRN PRN Reason: Hemorrhage Misoprostol (Misoprostol 400 Mcg (4 X 100 Mcg Tab)) 800 mcg RECTAL ONETIME PRN PRN Reason: Hemorrhage Ondansetron HCl (Ondansetron 4 Mg/2 Ml Sdv) 4 mg IVPUSH Q4H PRN PRN Reason: Nausea/Vomiting Last Admin: 01/11/21 14:07 Dose: 4 mg Documented by: Oxytocin (Oxytocin 10 Units/1 Ml Sdv) 10 unit IM ONETIME PRN PRN Reason: Bleeding Prenat Multivit/[place]/Iron/Folic Ac ( Multivitamin With Calcium/Folic Acid/Iron Tab) 1 each PO DAILY [facility] Simethicone (Simethicone 80 Mg Tab.Chew) 80 mg PO Q4H PRN PRN Reason: Gas Sodium Chloride (Sodium Chloride 0.9% 10 Ml Syringe) 10 ml FLUSH ASDIRECTED PRN PRN Reason: Keep Vein Open Zolpidem Tartrate (Zolpidem 5 Mg Tab) 5 mg PO BEDTIME PRN PRN Reason: Insomnia Discontinued Medications Acetaminophen (Acetaminophen 325 Mg Tab) 650 mg PO Q6H PRN PRN Reason: Pain/Fever Acetaminophen (Acetaminophen 325 Mg Tab) 650 mg PO Q4H RUBEN Last Admin: 01/11/21 23:47 Dose: Not Given Documented by: Benzocaine/Menthol (Benzocaine/Menthol 20%-0.5% [place] 56 Gm Canister) 0 gm TOP Q4H PRN PRN Reason: Perineal comfort measures Carboprost Tromethamine (Carboprost Tromethamine 250 Mcg/1 Ml Amp) 250 mcg IM ASDIRECTED PRN PRN Reason: HEMORRHAGE Carboprost Tromethamine (Carboprost Tromethamine 250 Mcg/1 Ml Amp) 250 mcg IM ASDIRECTED PRN PRN Reason: Excessive vaginal bleeding Docusate Sodium (Docusate Sodium 100 Mg Cap) 100 mg PO BID PRN PRN Reason: Constipation Ephedrine Sulfate (Ephedrine 50 Mg/Ml Sdv) 5 mg IVPUSH Q5M PRN PRN Reason: See Label Comments Epinephrine HCl (Epinephrine 1 Mg/1 Ml Amp) Confirm Administered Dose 0 mg .ROUTE .STK-MED ONE Stop: 01/11/21 15:03 Last Admin: 01/11/21 23:47 Dose: Not Given Documented by: Epinephrine HCl (Epinephrine 1 Mg/1 Ml Amp) Confirm Administered Dose 1 mg .ROUTE .STK-MED ONE Stop: 01/11/21 18:34 Last Admin: 01/11/21 23:47 Dose: Not Given Documented by: Fentanyl (Fentanyl 100 Mcg/2 Ml Sdv) 100 mcg IVPUSH Q1H PRN PRN Reason: Pain (moderate 4-6) Last Admin: 01/11/21 13:54 Dose: 100 mcg Documented by: Fentanyl (Fentanyl 100 Mcg/2 Ml Sdv) Confirm Administered Dose 0 mcg .ROUTE .STK-MED ONE Stop: 01/11/21 15:03 Last Admin: 01/11/21 23:47 Dose: Not Given Documented by: Fentanyl (Fentanyl 100 Mcg/2 Ml Sdv) Confirm Administered Dose 100 mcg .ROUTE .STK-MED ONE Stop: 01/11/21 18:34 Last Admin: 01/11/21 23:47 Dose: Not Given Documented by: Lactated Ringer's (Ringers, Lactated) 1,000 mls @ 999 mls/hr IV BOLUS ONE Stop: 01/11/21 10:00 Last Admin: 01/11/21 18:24 Dose: 999 mls/hr Documented by: Lactated Ringer's (Ringers, Lactated) 1,000 mls @ 125 mls/hr IV ASDIRECTED RUBEN Last Admin: 01/11/21 18:23 Dose: 125 mls/hr Documented by: Tranexamic Acid 1,000 mg/ (Sodium Chloride) 110 mls @ 660 mls/hr IV ONETIME PRN PRN Reason: Bleeding Lactated Ringer's (Ringers, Lactated) 500 mls @ 999 mls/hr IV SEECOMMENT [facility] Lactated Ringer's (Ringers, Lactated) 500 mls @ 999 mls/hr IV .BOLUS [facility] Tranexamic Acid 1,000 mg/ (Sodium Chloride) 110 mls @ 660 mls/hr IV ONETIME PRN PRN Reason: Bleeding Ibuprofen (Ibuprofen 800 Mg Tab) 800 mg PO Q8H PRN PRN Reason: Pain Lidocaine HCl (Lidocaine 1% 30 Ml Sdv) 30 ml INJECT ASDIRECTED PRN PRN Reason: Perineal Repair Misoprostol (Misoprostol 400 Mcg (4 X 100 Mcg Tab)) 800 mcg RECTAL ASDIRECTED PRN PRN Reason: Hemorrhage Last Admin: 01/11/21 20:43 Dose: 800 mcg Documented by: Misoprostol (Misoprostol 400 Mcg (4 X 100 Mcg Tab)) 800 mcg RECTAL ONETIME PRN PRN Reason: Hemorrhage Naloxone HCl (Naloxone 2 Mg/2 Ml Syringe) 0.1 mg IVPUSH SEECOMMENT PRN PRN Reason: Respiratory Depression Non-Formulary Medication ( #103/Iron Fumarate/Fa [ ]) 1 tab PO DAILY RUBEN Oxytocin (Oxytocin 10 Units/1 Ml Sdv) 10 unit IM ONETIME PRN PRN Reason: Bleeding Prenat Multivit/Clinical Neuropsychologist/Iron/Folic Ac ( Multivitamin With Calcium/Folic Acid/Iron Tab) 1 each PO DAILY RUBEN Promethazine HCl (Promethazine 25 Mg/Ml Sdv) 12.5 mg IM Q6H PRN PRN Reason: Nausea/Vomiting Simethicone (Simethicone 80 Mg Tab.Chew) 80 mg PO Q4H PRN PRN Reason: Gas Sodium Chloride (Sodium Chloride 0.9% 10 Ml Syringe) 10 ml FLUSH ASDIRECTED PRN PRN Reason: Keep Vein Open Sodium Chloride (Sodium Chloride 0.9% 10 Ml Syringe) 10 ml FLUSH ASDIRECTED PRN PRN Reason: Keep Vein Open Sufentanil Citrate (Sufentanil 50 Mcg/1 Ml Amp) Confirm Administered Dose 50 mcg .ROUTE [email or web address] ONE Stop: 01/11/21 15:03 Last Admin: 01/11/21 23:47 Dose: Not Given Documented by: Sufentanil Citrate (Sufentanil 50 Mcg/1 Ml Amp) Confirm Administered Dose 50 mcg .ROUTE .STK-MED ONE Stop: 01/11/21 18:34 Last Admin: 01/11/21 23:47 Dose: Not Given Documented by: Zolpidem Tartrate (Zolpidem 5 Mg Tab) 5 mg PO BEDTIME PRN PRN Reason: Insomnia - Interaction Infant Disposition, : in Room with Family Support Person: Significant Other - Recovery Exam Fundal Tone: Firm Fundal Level: At Umbilicus Fundal Placement: Midline Lochia Amount: Small Lochia Color: Rubra/Red Perineum Description: Intact, Minimal Bruising/Swelling Episiotomy/Laceration: Approximated Bladder Status: Nonpalpable - Exam General: Alert, Oriented HEENT: Pupils Equal, Pupils Reactive Neck: Supple Lungs: Clear to Auscultation Cardiovascular: Regular Rate, Regular Rhythm GI/Abdominal Exam: Soft, Non-Tender Extremities: No Pedal Edema Skin: Warm, Dry Neurological: No New Focal Deficit Psy/Mental Status: Normal Affect, Normal Mood - Problem List Review Problem List Initiated/Reviewed/Updated: Yes - My Orders Last 24 Hours: My Active Orders 01/11/21 07:59 BILE ACIDS [REF] Routine 01/11/21 Lunch Regular Diet [DIET] 01/11/21 Dinner Regular Diet [DIET] 01/11/21 21:05 Saline Lock Insert [OM.PC] Urgent 01/11/21 23:02 Vital Signs [RC] 08,20 Benzocaine/Menthol [Dermoplast Pain Relief [place]] See Dose Instructions TOP Q4H PRN Carboprost Tromethamine [Hemabate DS] 250 mcg IM ASDIRECTED PRN Docusate Sodium [Colace] 100 mg PO BID PRN Ibuprofen [Motrin] 800 mg PO Q8H PRN Oxytocin [Pitocin] 10 unit IM ONETIME PRN Simethicone 80 mg PO Q4H PRN Sodium Chloride 0.9% [Saline Flush] 10 ml FLUSH ASDIRECTED PRN Tranexamic Acid [Cyklokapron] 1,000 mg Sodium Chloride 0.9% [Normal Saline] 100 ml IV ONETIME Zolpidem [Ambien] 5 mg PO BEDTIME PRN miSOPROStoL [Cytotec] 800 mcg RECTAL ONETIME PRN 01/11/21 23:04 Notify Provider Vital Signs OB [RC] ASDIRECTED Assess Lochia [WOMSER] Per Unit Routine Assess Uterine Involution [WOMSER] Per Unit Routine Breast Pump [WOMSER] Per Unit Routine Ice Therapy [OM.PC] Per Unit Routine Perineal Care [OM.PC] Per Unit Routine Saline Lock Insert [OM.PC] Urgent Sitz Bath [OM.PC] Per Unit Routine 01/12/21 09:00 Vit with Ca/FA/Iron [ Plus Iron] 1 each PO DAILY - Assessment Assessment:: Oksana Prince is a 21 year old female is day 1 s/p with cervical laceration. 1. 39 weeks gestation , now s/p 2. GBS negative status 3. Cervical laceration noted at delivery, repaired with figure of eight 4. Elevated liver enzymes which are downtrending, liver ultrasound WNL 5. Headaches in 6. History of pre-eclampsia in prior 7. History of HELLP in prior - Plan Plan:: 1. Oksana is doing well after delivery. She did have one isolated elevated blood pressure which has not recurred. We'll continue to monitor closely. 2. Hemoglobin decreased to 9.3 from 12.7 at admission. She denies any dizziness or shortness of breath. 3. Continue to encourage ambulation 4. Continue with advancing routine cares 5. Oksana has had some nasal congestion this morning. COVID testing at admission was negative. Discussed use of OTC medications. 6. Likely discharge home tomorrow.
[2021-01-12] MEDS: Prenatal Multivitamin with Calcium/Folic Acid/Iron Tab PO SCH (08:50)
[2021-01-12] MEDS ORDERED: Prenatal Multivitamin with Calcium/Folic Acid/Iron Tab PO SCH (09:00)
[2021-01-12] MEDS: Acetaminophen 325 MG Tab PO PRN (12:24)
[2021-01-13] MEDS: Acetaminophen 325 MG Tab PO PRN (02:43)
[2021-01-13] MEDS: Ibuprofen 800 MG Tab PO PRN (06:50)
[2021-01-13] MEDS: Prenatal Multivitamin with Calcium/Folic Acid/Iron Tab PO SCH (07:59)
[2021-01-13] MEDS: Docusate Sodium 100 MG Cap PO PRN (07:59)
[2021-01-13 08:25] VITALS: BP 120/69; PULSE 74
--- NOTE | 2021-01-13 08:45 | PCM.PNPP ---
- General Info Date of Service: 01/13/21 Subjective Update: Oksana Prince is a 21 year old female at 39w0d who is day #2 from [facility]. She reports that her lochia is mild in degree. She is . She is up and ambulating well, tolerating oral intake, and using the restroom. She has had good bowel sounds and passing gas. She has no other concerns. She feels ready to go home. - Review of Systems General: Denies: Fever, Weakness, Chills HEENT: Denies: Headaches, Sore Throat, Visual Changes Pulmonary: Denies: Shortness of Breath, Cough Cardiovascular: Denies: Chest Pain, Palpitations, Edema Gastrointestinal: Denies: Abdominal Pain, Nausea, Vomiting Genitourinary: Denies: Dysuria, Frequency, Burning Skin: Denies: Cyanosis, Rash Neurological: Denies: Confusion, Dizziness, Headache, Numbness - General Info Date of Service: 01/13/21 - Patient Data Vital Signs - Most Recent: Last Vital Signs Temp 98.2 F 01/13/21 08:00 Pulse 74 01/13/21 08:00 Resp 12 01/13/21 08:00 BP 120/69 01/13/21 08:00 Pulse Ox 99 01/12/21 20:00 Weight - Most Recent: 199 lb Med Orders - Current: Current Medications Acetaminophen (Acetaminophen 325 Mg Tab) 650 mg PO Q4H PRN PRN Reason: Pain (Mild 1-3) and fever Last Admin: 01/13/21 02:43 Dose: 650 mg Documented by: Benzocaine/Menthol (Benzocaine/Menthol 20%-0.5% [place] 56 Gm Canister) 0 gm TOP Q4H PRN PRN Reason: Perineal comfort measures Last Admin: 01/12/21 00:51 Dose: 1 spray Documented by: Carboprost Tromethamine (Carboprost Tromethamine 250 Mcg/1 Ml Amp) 250 mcg IM ASDIRECTED PRN PRN Reason: Excessive vaginal bleeding Docusate Sodium (Docusate Sodium 100 Mg Cap) 100 mg PO BID PRN PRN Reason: Constipation Last Admin: 01/13/21 07:59 Dose: 100 mg Documented by: Oxytocin/Sodium Chloride (Pitocin In Ns 30 Unit/500 Ml) 30 unit in 500 mls @ 2 mls/hr IV TITRATE RUBEN; Protocol Last Titration: 01/11/21 22:02 Dose: Infused Documented by: Tranexamic Acid 1,000 mg/ (Sodium Chloride) 110 mls @ 660 mls/hr IV ONETIME PRN PRN Reason: Bleeding Ibuprofen (Ibuprofen 800 Mg Tab) 800 mg PO Q8H PRN PRN Reason: Pain Last Admin: 01/13/21 06:50 Dose: 800 mg Documented by: Methylergonovine Maleate (Methylergonovine 0.2 Mg/1 Ml Amp) 0.2 mg IM ASDIRECTED PRN PRN Reason: Hemorrhage Misoprostol (Misoprostol 400 Mcg (4 X 100 Mcg Tab)) 800 mcg RECTAL ONETIME PRN PRN Reason: Hemorrhage Ondansetron HCl (Ondansetron 4 Mg/2 Ml Sdv) 4 mg IVPUSH Q4H PRN PRN Reason: Nausea/Vomiting Last Admin: 01/11/21 14:07 Dose: 4 mg Documented by: Oxytocin (Oxytocin 10 Units/1 Ml Sdv) 10 unit IM ONETIME PRN PRN Reason: Bleeding Prenat Multivit/Cable Splicing Technician/Iron/Folic Ac ( Multivitamin With Calcium/Folic Acid/Iron Tab) 1 each PO DAILY [facility] Last Admin: 01/13/21 07:59 Dose: 1 each Documented by: Simethicone (Simethicone 80 Mg Tab.Chew) 80 mg PO Q4H PRN PRN Reason: Gas Sodium Chloride (Sodium Chloride 0.9% 10 Ml Syringe) 10 ml FLUSH ASDIRECTED PRN PRN Reason: Keep Vein Open Zolpidem Tartrate (Zolpidem 5 Mg Tab) 5 mg PO BEDTIME PRN PRN Reason: Insomnia Discontinued Medications Acetaminophen (Acetaminophen 325 Mg Tab) 650 mg PO Q6H PRN PRN Reason: Pain/Fever Acetaminophen (Acetaminophen 325 Mg Tab) 650 mg PO Q4H [facility] Last Admin: 01/11/21 23:47 Dose: Not Given Documented by: Benzocaine/Menthol (Benzocaine/Menthol 20%-0.5% [place] 56 Gm Canister) 0 gm TOP Q4H PRN PRN Reason: Perineal comfort measures Carboprost Tromethamine (Carboprost Tromethamine 250 Mcg/1 Ml Amp) 250 mcg IM ASDIRECTED PRN PRN Reason: HEMORRHAGE Carboprost Tromethamine (Carboprost Tromethamine 250 Mcg/1 Ml Amp) 250 mcg IM ASDIRECTED PRN PRN Reason: Excessive vaginal bleeding Docusate Sodium (Docusate Sodium 100 Mg Cap) 100 mg PO BID PRN PRN Reason: Constipation Ephedrine Sulfate (Ephedrine 50 Mg/Ml Sdv) 5 mg IVPUSH Q5M PRN PRN Reason: See Label Comments Epinephrine HCl (Epinephrine 1 Mg/1 Ml Amp) Confirm Administered Dose 0 mg .ROUTE .STK-MED ONE Stop: 01/11/21 15:03 Last Admin: 01/11/21 23:47 Dose: Not Given Documented by: Epinephrine HCl (Epinephrine 1 Mg/1 Ml Amp) Confirm Administered Dose 1 mg .ROUTE .STK-MED ONE Stop: 01/11/21 18:34 Last Admin: 01/11/21 23:47 Dose: Not Given Documented by: Epinephrine HCl (Epinephrine 1 Mg/1 Ml Amp) 0.1 mg .XX .STK-MED ONE Stop: 01/11/21 15:11 Fentanyl (Fentanyl 100 Mcg/2 Ml Sdv) 100 mcg IVPUSH Q1H PRN PRN Reason: Pain (moderate 4-6) Last Admin: 01/11/21 13:54 Dose: 100 mcg Documented by: Fentanyl (Fentanyl 100 Mcg/2 Ml Sdv) Confirm Administered Dose 0 mcg .ROUTE .STK-MED ONE Stop: 01/11/21 15:03 Last Admin: 01/11/21 23:47 Dose: Not Given Documented by: Fentanyl (Fentanyl 100 Mcg/2 Ml Sdv) Confirm Administered Dose 100 mcg .ROUTE .STK-MED ONE Stop: 01/11/21 18:34 Last Admin: 01/11/21 23:47 Dose: Not Given Documented by: Fentanyl (Fentanyl 100 Mcg/2 Ml Sdv) 15 mcg ITHECAL .STK-MED ONE Stop: 01/11/21 15:11 Lactated Ringer's (Ringers, Lactated) 1,000 mls @ 999 mls/hr IV BOLUS ONE Stop: 01/11/21 10:00 Last Admin: 01/11/21 18:24 Dose: 999 mls/hr Documented by: Lactated Ringer's (Ringers, Lactated) 1,000 mls @ 125 mls/hr IV ASDIRECTED [facility] Last Admin: 05/19/21 18:23 Dose: 125 mls/hr Documented by: Tranexamic Acid 1,000 mg/ (Sodium Chloride) 110 mls @ 660 mls/hr IV ONETIME PRN PRN Reason: Bleeding Lactated Ringer's (Ringers, Lactated) 500 mls @ 999 mls/hr IV SEECOMMENT RUBEN Lactated Ringer's (Ringers, Lactated) 500 mls @ 999 mls/hr IV .BOLUS RUBEN Tranexamic Acid 1,000 mg/ (Sodium Chloride) 110 mls @ 660 mls/hr IV ONETIME PRN PRN Reason: Bleeding Ibuprofen (Ibuprofen 800 Mg Tab) 800 mg PO Q8H PRN PRN Reason: Pain Lidocaine HCl (Lidocaine 1% 30 Ml Sdv) 30 ml INJECT ASDIRECTED PRN PRN Reason: Perineal Repair Misoprostol (Misoprostol 400 Mcg (4 X 100 Mcg Tab)) 800 mcg RECTAL ASDIRECTED PRN PRN Reason: Hemorrhage Last Admin: 01/11/21 20:43 Dose: 800 mcg Documented by: Misoprostol (Misoprostol 400 Mcg (4 X 100 Mcg Tab)) 800 mcg RECTAL ONETIME PRN PRN Reason: Hemorrhage Naloxone HCl (Naloxone 2 Mg/2 Ml Syringe) 0.1 mg IVPUSH SEECOMMENT PRN PRN Reason: Respiratory Depression Non-Formulary Medication ( #103/Iron Fumarate/Fa [ ]) 1 tab PO DAILY [facility] Oxytocin (Oxytocin 10 Units/1 Ml Sdv) 10 unit IM ONETIME PRN PRN Reason: Bleeding Prenat Multivit/Cable Splicing Technician/Iron/Folic Ac ( Multivitamin With Calcium/Folic Ac id/Iron Tab) 1 each PO DAILY [facility] Promethazine HCl (Promethazine 25 Mg/Ml Sdv) 12.5 mg IM Q6H PRN PRN Reason: Nausea/Vomiting Simethicone (Simethicone 80 Mg Tab.Chew) 80 mg PO Q4H PRN PRN Reason: Gas Sodium Chloride (Sodium Chloride 0.9% 10 Ml Syringe) 10 ml FLUSH ASDIRECTED PRN PRN Reason: Keep Vein Open Sodium Chloride (Sodium Chloride 0.9% 10 Ml Syringe) 10 ml FLUSH ASDIRECTED PRN PRN Reason: Keep Vein Open Sufentanil Citrate (Sufentanil 50 Mcg/1 Ml Amp) Confirm Administered Dose 50 mcg .ROUTE .STK-MED ONE Stop: 05/19/21 15:03 Last Admin: 01/11/21 23:47 Dose: Not Given Documented by: Sufentanil Citrate (Sufentanil 50 Mcg/1 Ml Amp) Confirm Administered Dose 50 mcg .ROUTE .STK-MED ONE Stop: 01/11/21 18:34 Last Admin: 01/11/21 23:47 Dose: Not Given Documented by: Sufentanil Citrate (Sufentanil 50 Mcg/1 Ml Amp) 15 mcg [place]HECAL .STK-MED ONE Stop: 01/11/21 15:11 Sufentanil Citrate (Sufentanil 50 Mcg/1 Ml Amp) 25 mcg ITHECAL .STK-MED ONE Stop: 01/11/21 18:36 Zolpidem Tartrate (Zolpidem 5 Mg Tab) 5 mg PO BEDTIME PRN PRN Reason: Insomnia - Interaction Infant Disposition, : [place] in Room with Family Support Person: Significant Other - Recovery Exam Fundal Tone: Firm Fundal Level: 1 Fingerbreadths Below Umbilicus Fundal Placement: Midline Lochia Amount: Scant Lochia Color: Rubra/Red Perineum Description: Intact, Minimal Bruising/Swelling Episiotomy/Laceration: None Bladder Status: Voiding - Exam General: Alert, Oriented HEENT: Pupils Equal Lungs: Clear to Auscultation, Normal Respiratory Effort Cardiovascular: Regular Rate, Regular Rhythm GI/Abdominal Exam: Soft, Non-Tender Extremities: Normal Inspection, No Pedal Edema Skin: Warm, Dry Psy/Mental Status: Alert, Normal Affect, Normal Mood - Problem List Review Problem List Initiated/Reviewed/Updated: Yes - My Orders Last 24 Hours: My Active Orders 01/12/21 09:00 Vit with Ca/FA/Iron [ Plus Iron] 1 each PO DAILY - Assessment Assessment:: Oksana Prince is a 21 year old female is day 2 s/p with cervical laceration. 1. 39 weeks gestation , now s/p 2. GBS negative status 3. Cervical laceration noted at delivery, repaired with figure of eight 4. Elevated liver enzymes which are downtrending, liver ultrasound WNL 5. Headaches in 6. History of pre-eclampsia in prior 7. History of HELLP in prior - Plan Plan:: 1. Oksana continues to do well after her delivery. She has no concerns. 2. Hemoglobin decreased to 9.3 after delivery from 12.7 at admission. She denies any dizziness or shortness of breath. 3. Continue with routine cares. Discharge home later today. 4. Discharge instructions have been given and will be reviewed by nursing staff. She should have a checkup in 6 weeks. Baby has follow up on Saturday.
--- NOTE | 2021-01-13 08:54 | PCM.DCSUM1 ---
Discharge Summary - Hospital Course Free Text/Narrative:: Oksana Prince is a 21 year old at 39w0d who presented for induction of labor 01/11/2021. Her last was complicated by preeclampsia and HELLP syndrome. She had elevated liver enzymes during this with a normal liver ultrasound. Her blood pressures have been stable. Labor was induced with pitocin, followed by AROM at 3.5cm. She had a normal spontaneous vaginal delivery and delivered a viable male infant weighing 3170g with Apgars of 9 and 9 at 1 and 5 minutes respectively. Perineum was intact and did not require repair. Brisk bleeding was noted following delivery of the placenta which persisted after 800mcg of rectal cytotec and firm uterus on palpation. A cervical laceration was noted at the 5 o'clock position which was repaired with a figure of eight. GBS negative. course was otherwise unremarkable. She has been ambulating, voiding, and tolerating a general diet without difficulty. Pain has been well controlled with oral medications. She feels ready for discharge home. - Discharge Data Discharge Date: 01/13/21 Discharge Disposition: Home, Self-Care 01 Condition: Good - Referral to Home Health Primary Care Physician: Shannon Cutler MD - Discharge Plan *PRESCRIPTION DRUG MONITORING PROGRAM REVIEWED*: Not Applicable *COPY OF PRESCRIPTION DRUG MONITORING REPORT IN PATIENT JAVIER: Not Applicable Home Medications: Home Meds Acetaminophen [Tylenol] 650 mg PO Q4H 03/05/16 [History] #103/Iron Fumarate/Fa [ ] 1 tab PO DAILY 07/23/20 [History] Ibuprofen [Motrin] 800 mg PO Q8H PRN tablet 01/13/21 [Rx] - Discharge Summary/Plan Comment DC Time >30 min.: Yes - Patient Data Vitals - Most Recent: Last Vital Signs Temp 98.2 F 01/13/21 08:00 Pulse 74 01/13/21 08:00 Resp 12 01/13/21 08:00 BP 120/69 01/13/21 08:00 Pulse Ox 99 01/12/21 20:00 Weight - Most Recent: 199 lb Med Orders - Current: Current Medications Acetaminophen (Acetaminophen 325 Mg Tab) 650 mg PO Q4H PRN PRN Reason: Pain (Mild 1-3) and fever Last Admin: 01/13/21 02:43 Dose: 650 mg Documented by: Benzocaine/Menthol (Benzocaine/Menthol 20%-0.5% [place] 56 Gm Canister) 0 gm TOP Q4H PRN PRN Reason: Perineal comfort measures Last Admin: 01/12/21 00:51 Dose: 1 spray Documented by: Carboprost Tromethamine (Carboprost Tromethamine 250 Mcg/1 Ml Amp) 250 mcg IM ASDIRECTED PRN PRN Reason: Excessive vaginal bleeding Docusate Sodium (Docusate Sodium 100 Mg Cap) 100 mg PO BID PRN PRN Reason: Constipation Last Admin: 01/13/21 07:59 Dose: 100 mg Documented by: Oxytocin/Sodium Chloride (Pitocin In Ns 30 Unit/500 Ml) 30 unit in 500 mls @ 2 mls/hr IV TITRATE RUBEN; Protocol Last Titration: 01/11/21 22:02 Dose: Infused Documented by: Tranexamic Acid 1,000 mg/ (Sodium Chloride) 110 mls @ 660 mls/hr IV ONETIME PRN PRN Reason: Bleeding Ibuprofen (Ibuprofen 800 Mg Tab) 800 mg PO Q8H PRN PRN Reason: Pain Last Admin: 01/13/21 06:50 Dose: 800 mg Documented by: Methylergonovine Maleate (Methylergonovine 0.2 Mg/1 Ml Amp) 0.2 mg IM ASDIRECTED PRN PRN Reason: Hemorrhage Misoprostol (Misoprostol 400 Mcg (4 X 100 Mcg Tab)) 800 mcg RECTAL ONETIME PRN PRN Reason: Hemorrhage Ondansetron HCl (Ondansetron 4 Mg/2 Ml Sdv) 4 mg IVPUSH Q4H PRN PRN Reason: Nausea/Vomiting Last Admin: 01/11/21 14:07 Dose: 4 mg Documented by: Oxytocin (Oxytocin 10 Units/1 Ml Sdv) 10 unit IM ONETIME PRN PRN Reason: Bleeding Prenat Multivit/[place]/Iron/Folic Ac ( Multivitamin With Calcium/Folic Acid/Iron Tab) 1 each PO DAILY [facility] Last Admin: 01/13/21 07:59 Dose: 1 each Documented by: Simethicone (Simethicone 80 Mg Tab.Chew) 80 mg PO Q4H PRN PRN Reason: Gas Sodium Chloride (Sodium Chloride 0.9% 10 Ml Syringe) 10 ml FLUSH ASDIRECTED PRN PRN Reason: Keep Vein Open Zolpidem Tartrate (Zolpidem 5 Mg Tab) 5 mg PO BEDTIME PRN PRN Reason: Insomnia Discontinued Medications Acetaminophen (Acetaminophen 325 Mg Tab) 650 mg PO Q6H PRN PRN Reason: Pain/Fever Acetaminophen (Acetaminophen 325 Mg Tab) 650 mg PO Q4H [facility] Last Admin: 01/11/21 23:47 Dose: Not Given Documented by: Benzocaine/Menthol (Benzocaine/Menthol 20%-0.5% [place] 56 Gm Canister) 0 gm TOP Q4H PRN PRN Reason: Perineal comfort measures Carboprost Tromethamine (Carboprost Tromethamine 250 Mcg/1 Ml Amp) 250 mcg IM ASDIRECTED PRN PRN Reason: HEMORRHAGE Carboprost Tromethamine (Carboprost Tromethamine 250 Mcg/1 Ml Amp) 250 mcg IM ASDIRECTED PRN PRN Reason: Excessive vaginal bleeding Docusate Sodium (Docusate Sodium 100 Mg Cap) 100 mg PO BID PRN PRN Reason: Constipation Ephedrine Sulfate (Ephedrine 50 Mg/Ml Sdv) 5 mg IVPUSH Q5M PRN PRN Reason: See Label Comments Epinephrine HCl (Epinephrine 1 Mg/1 Ml Amp) Confirm Administered Dose 0 mg .ROUTE .STK-MED ONE Stop: 01/11/21 15:03 Last Admin: 01/11/21 23:47 Dose: Not Given Documented by: Epinephrine HCl (Epinephrine 1 Mg/1 Ml Amp) Confirm Administered Dose 1 mg .ROUTE .STK-MED ONE Stop: 01/11/21 18:34 Last Admin: 01/11/21 23:47 Dose: Not Given Documented by: Epinephrine HCl (Epinephrine 1 Mg/1 Ml Amp) 0.1 mg .XX .STK-MED ONE Stop: 01/11/21 15:11 Fentanyl (Fentanyl 100 Mcg/2 Ml Sdv) 100 mcg IVPUSH Q1H PRN PRN Reason: Pain (moderate 4-6) Last Admin: 01/11/21 13:54 Dose: 100 mcg Documented by: Fentanyl (Fentanyl 100 Mcg/2 Ml Sdv) Confirm Administered Dose 0 mcg .ROUTE .STK-MED ONE Stop: 01/11/21 15:03 Last Admin: 01/11/21 23:47 Dose: Not Given Documented by: Fentanyl (Fentanyl 100 Mcg/2 Ml Sdv) Confirm Administered Dose 100 mcg .ROUTE .STK-MED ONE Stop: 01/11/21 18:34 Last Admin: 01/11/21 23:47 Dose: Not Given Documented by: Fentanyl (Fentanyl 100 Mcg/2 Ml Sdv) 15 mcg ITHECAL .STK-MED ONE Stop: 01/11/21 15:11 Lactated Ringer's (Ringers, Lactated) 1,000 mls @ 999 mls/hr IV BOLUS ONE Stop: 01/11/21 10:00 Last Admin: 01/11/21 18:24 Dose: 999 mls/hr Documented by: Lactated Ringer's (Ringers, Lactated) 1,000 mls @ 125 mls/hr IV ASDIRECTED [facility] Last Admin: 01/11/21 18:23 Dose: 125 mls/hr Documented by: Tranexamic Acid 1,000 mg/ (Sodium Chloride) 110 mls @ 660 mls/hr IV ONETIME PRN PRN Reason: Bleeding Lactated Ringer's (Ringers, Lactated) 500 mls @ 999 mls/hr IV SEECOMMENT [facility] Lactated Ringer's (Ringers, Lactated) 500 mls @ 999 mls/hr IV .BOLUS [facility] Tranexamic Acid 1,000 mg/ (Sodium Chloride) 110 mls @ 660 mls/hr IV ONETIME PRN PRN Reason: Bleeding Ibuprofen (Ibuprofen 800 Mg Tab) 800 mg PO Q8H PRN PRN Reason: Pain Lidocaine HCl (Lidocaine 1% 30 Ml Sdv) 30 ml INJECT ASDIRECTED PRN PRN Reason: Perineal Repair Misoprostol (Misoprostol 400 Mcg (4 X 100 Mcg Tab)) 800 mcg RECTAL ASDIRECTED PRN PRN Reason: Hemorrhage Last Admin: 01/11/21 20:43 Dose: 800 mcg Documented by: Misoprostol (Misoprostol 400 Mcg (4 X 100 Mcg Tab)) 800 mcg RECTAL ONETIME PRN PRN Reason: Hemorrhage Naloxone HCl (Naloxone 2 Mg/2 Ml Syringe) 0.1 mg IVPUSH SEECOMMENT PRN PRN Reason: Respiratory Depression Non-Formulary Medication ( #103/Iron Fumarate/Fa [ ]) 1 tab PO DAILY [facility] Oxytocin (Oxytocin 10 Units/1 Ml Sdv) 10 unit IM ONETIME PRN PRN Reason: Bleeding Prenat Multivit/[place]/Iron/Folic Ac ( Multivitamin With Calcium/Folic Acid/Iron Tab) 1 each PO DAILY [facility] Promethazine HCl (Promethazine 25 Mg/Ml Sdv) 12.5 mg IM Q6H PRN PRN Reason: Nausea/Vomiting Simethicone (Simethicone 80 Mg Tab.Chew) 80 mg PO Q4H PRN PRN Reason: Gas Sodium Chloride (Sodium Chloride 0.9% 10 Ml Syringe) 10 ml FLUSH ASDIRECTED PRN PRN Reason: Keep Vein Open Sodium Chloride (Sodium Chloride 0.9% 10 Ml Syringe) 10 ml FLUSH ASDIRECTED PRN PRN Reason: Keep Vein Open Sufentanil Citrate (Sufentanil 50 Mcg/1 Ml Amp) Confirm Administered Dose 50 mcg .ROUTE .STK-MED ONE Stop: 01/11/21 15:03 Last Admin: 01/11/21 23:47 Dose: Not Given Documented by: Sufentanil Citrate (Sufentanil 50 Mcg/1 Ml Amp) Confirm Administered Dose 50 mcg .ROUTE .STK-MED ONE Stop: 01/11/21 18:34 Last Admin: 01/11/21 23:47 Dose: Not Given Documented by: Sufentanil Citrate (Sufentanil 50 Mcg/1 Ml Amp) 15 mcg ITHECAL .STK-MED ONE Stop: 01/11/21 15:11 Sufentanil Citrate (Sufentanil 50 Mcg/1 Ml Amp) 25 mcg ITHECAL .STK-MED ONE Stop: 01/11/21 18:36 Zolpidem Tartrate (Zolpidem 5 Mg Tab) 5 mg PO BEDTIME PRN PRN Reason: Insomnia - Exam General: Reports: Alert, Oriented HEENT: Reports: Pupils Equal, Pupils Reactive Neck: Reports: Supple Lungs: Reports: Clear to Auscultation, Normal Respiratory Effort Cardiovascular: Reports: Regular Rate, Regular Rhythm GI/Abdominal Exam: Normal Bowel Sounds, Soft Extremities: Normal Inspection, Non-Tender, No Pedal Edema Skin: Reports: Warm, Dry Psy/Mental Status: Reports: Alert, Normal Affect, Normal Mood
== END 2021-01-13 11:55 | disposition home or self-care (01) | DRG 768 ==
LOC: DL.OBCHECK 06:58 → DL.OB 08:30 → OBSVTOIN 20:03
PROVIDERS: ADMIT Family Medicine; ATTEND Family Medicine
PROC: 10E0XZZ Delivery of Products of Conception, External Approach (ICD-10-PCS; principal; 2021-01-11)
PROC: 0UQC7ZZ Repair Cervix, Via Natural or Artificial Opening (ICD-10-PCS; 2021-01-11)
PROC: 10907ZC Drainage of Amniotic Fluid, Therapeutic from Products of Conception, Via Natural or Artificial Opening (ICD-10-PCS; 2021-01-11)
PROC: 3E0R3BZ Introduction of Anesthetic Agent into Spinal Canal, Percutaneous Approach (ICD-10-PCS; 2021-01-11)
PROC: 3E033VJ Introduction of Other Hormone into Peripheral Vein, Percutaneous Approach (ICD-10-PCS; 2021-01-11)
DX: O71.3 Obstetric laceration of cervix (principal); Z37.0 Single live birth; Z3A.39 39 weeks gestation of pregnancy; Z20.822 Contact with and (suspected) exposure to COVID-19; O76 Abnormality in fetal heart rate and rhythm complicating labor and delivery; O71.82 Other specified trauma to perineum and vulva
CPT/HCPCS: 01967; 36415; 51701; 59409; 82239; 85025; 85027; A9270-GY; J0171; J2405; J2590; J3010; J7120; U0002

== ENCOUNTER 2023-12-12 00:21 | Emergency (ER) | payer SELFPAY ==
[2023-12-12] MEDS: diphenhydrAMINE 50 MG/ML SDV IVPUSH ONE (00:54)
[2023-12-12] MEDS: Ondansetron 4 MG/2 ML SDV IVPUSH ONE (00:54)
[2023-12-12] MEDS: Ketorolac 30 MG/ML SDV IVPUSH ONE (00:54)
[2023-12-12] MEDS: Sodium Chloride 0.9% 1,000 ML IV ONE (00:55)
[2023-12-12] MEDS: Sodium Chloride 0.9% 10 ML Syringe FLUSH PRN (00:55)
[2023-12-12 01:55] VITALS: BP 113/70; PULSE 79
== END 2023-12-12 02:24 | disposition home or self-care (01) ==
LOC: DL.ED 00:21
DX: G43.909 Migraine, unspecified, not intractable, without status migrainosus (principal); I10 Essential (primary) hypertension; Z79.899 Other long term (current) drug therapy
CPT/HCPCS: 96374; 96375; 99283; 99283-25; J1200; J1885; J2405; J3490; J7030

== ENCOUNTER 2024-04-17 17:41 | Emergency (ER) | payer SELFPAY ==
[2024-04-17 18:06] VITALS: BP 129/78; PULSE 82
[2024-04-18] MEDS ORDERED: Dexamethasone 4 MG/ML SDV IM ONE (12:30)
== END 2024-04-17 18:20 | disposition home or self-care (01) ==
LOC: DL.ED 17:41
DX: H60.91 Unspecified otitis externa, right ear (principal); I10 Essential (primary) hypertension; J45.909 Unspecified asthma, uncomplicated; Z90.49 Acquired absence of other specified parts of digestive tract; Z79.899 Other long term (current) drug therapy
CPT/HCPCS: 99282

== ENCOUNTER 2024-05-19 22:57 | Emergency (ER) | payer SELFPAY ==
[2024-05-19] MEDS ORDERED: Sodium Chloride 0.9% 10 ML Syringe FLUSH PRN (23:01)
[2024-05-19] MEDS ORDERED: Sodium Chloride 0.9% 500 ML IV ONE (23:15)
[2024-05-19] MEDS: diphenhydrAMINE 25 MG Tab PO ONE (23:20)
[2024-05-19] MEDS: Famotidine 20 MG Tab PO ONE (23:20)
[2024-05-19] MEDS: Hydrocortisone 1% Crm 30 GM Tube TOP ONE (23:20)
[2024-05-19] MEDS: diphenhydrAMINE/Zinc Acetate 2% Crm 28.4 GM Tube TOP ONE (23:21)
[2024-05-19] MEDS: methylPREDNISolone Sodium Succinate 40 MG/1 ML SDV IM ONE (23:21)
[2024-05-20 00:06] VITALS: BP 120/82; PULSE 81
== END 2024-05-20 00:26 | disposition home or self-care (01) ==
LOC: DL.ED 22:57
DX: T63.441A Toxic effect of venom of bees, accidental (unintentional), initial encounter (principal); I10 Essential (primary) hypertension; J45.909 Unspecified asthma, uncomplicated; Z90.49 Acquired absence of other specified parts of digestive tract; Z79.899 Other long term (current) drug therapy
CPT/HCPCS: 96372; 99283; A9270-GY; J2919

== ENCOUNTER 2024-08-06 18:21 | Emergency (ER) | payer SELFPAY ==
[2024-08-06] MEDS: Lidocaine 2% 20 ML MDV ONE (18:45)
[2024-08-06] MEDS: Ketorolac 30 MG/ML SDV IM ONE (19:13)
[2024-08-06] MEDS: SUMAtriptan 6 MG/0.5 ML SDV SUBCUT ONE (19:13)
[2024-08-06 19:52] VITALS: BP 103/59; PULSE 81
== END 2024-08-06 19:49 | disposition home or self-care (01) ==
LOC: DL.ED 18:21
DX: G43.809 Other migraine, not intractable, without status migrainosus (principal); I10 Essential (primary) hypertension; Z79.899 Other long term (current) drug therapy
CPT/HCPCS: 96372; 99283; J1885; J3030; J3490

== ENCOUNTER 2024-09-07 21:10 | Emergency (ER) | payer MEDICAID ==
[2024-09-07] MEDS: Dexamethasone 4 MG/ML SDV IM ONE (22:44)
[2024-09-07] MEDS: Albuterol/Ipratropium 3.0-0.5 MG/3 ML Neb Soln NEB ONE (22:44)
[2024-09-07 23:13] VITALS: BP 124/80; PULSE 92
== END 2024-09-07 23:13 | disposition home or self-care (01) ==
LOC: DL.ED 21:10
DX: J06.9 Acute upper respiratory infection, unspecified (principal); I10 Essential (primary) hypertension; Z88.8 Allergy status to other drugs, medicaments and biological substances
CPT/HCPCS: 71046; 87081; 87428-QW; 87430; 96372; 99283; 99284; J1100; J7620-GY

== ENCOUNTER 2024-09-08 12:59 | Emergency (ER) | payer MEDICAID ==
[2024-09-08] MEDS ORDERED: Flumazenil 0.1 MG/ML 5 ML MDV IVPUSH PRN (13:22)
[2024-09-08] MEDS: LORazepam 2 MG/ML SDV IM ONE (13:33)
[2024-09-08 13:44] LABS: HEMATOCRIT 40.9 % (37.0-47.0); HEMOGLOBIN 14.1 g/dL (12.0-16.0); LYMPHOCYTES PERCENT AUTO 3.9 % (20.5-50.1); MEAN CORPUSCULAR HEMOGLOBIN 27.6 pg (27.0-34.0); MEAN CORPUSCULAR HGB CONC 34.5 g/dL (33.0-35.0); MEAN CORPUSCULAR VOLUME 80.2 fL (80-100); MONOCYTES PERCENT AUTO 2.3 % (2-8); NEUTROPHILS PERCENT AUTO 93.8 % (42.2-75.2); PLATELET COUNT,PLT 351 10^3/uL (150-450); WHITE BLOOD CELL COUNT,WBC 24.7 10^3/uL (5.0-10.0)
[2024-09-08 14:00] LABS: HCG QUALITATIVE,SERUM NEGATIVE (NEGATIVE)
[2024-09-08 14:13] LABS: ANION GAP 16.7 mEq/L (7-13); BLOOD UREA NITROGEN,BUN 11 mg/dL (7-18); CALCIUM 9.4 mg/dL (8.5-10.1); CARBON DIOXIDE,CO2 22 mmol/L (21-32); CHLORIDE,CL 103 mmol/L (98-107); ESTIMATED GFR 92 mL/min (>=60); GLUCOSE RANDOM 148 mg/dL (70-99); MAGNESIUM 1.6 mg/dL (1.8-2.4); POTASSIUM,K 3.7 mmol/L (3.5-5.1); SODIUM,NA 138 mmol/L (136-145); TSH ULTRASENSITIVE 0.81 uIU/mL (0.36-3.74)
[2024-09-08] MEDS ORDERED: Magnesium Sulfate/Water Premix 2 GM in Premix Bag 1 BAG IV ONE (14:14)
[2024-09-08] MEDS: Magnesium Oxide 400 MG Tab PO ONE (14:26)
[2024-09-08] MEDS: Magnesium Oxide 400 MG Tab ONE (14:28)
[2024-09-08 15:30] VITALS: BP 120/79; PULSE 102
== END 2024-09-08 15:30 | disposition home or self-care (01) ==
LOC: DL.ED 12:59
DX: R07.89 Other chest pain (principal); F41.9 Anxiety disorder, unspecified; R00.0 Tachycardia, unspecified; T38.0X5A Adverse effect of glucocorticoids and synthetic analogues, initial encounter; I10 Essential (primary) hypertension; Z79.899 Other long term (current) drug therapy
CPT/HCPCS: 36415; 71046; 80048; 83735; 84443; 84484; 84703; 85025; 85379; 93005; 93010; 96372; 99284; 99285; A9270; J2060

== ENCOUNTER 2024-10-18 13:03 | Emergency (ER) | payer MEDICAID ==
[2024-10-18] MEDS ORDERED: Sodium Chloride 0.9% 2,000 ML IV SCH (14:00)
[2024-10-18 14:45] VITALS: BP 127/79; PULSE 117
[2024-10-18] MEDS: Take Home: Ondansetron 4 MG Tab.DIS, 5 Tab Pack PO ONE (16:10)
== END 2024-10-18 16:04 | disposition home or self-care (01) ==
LOC: DL.ED 13:03
DX: J06.9 Acute upper respiratory infection, unspecified (principal); B97.89 Other viral agents as the cause of diseases classified elsewhere; I10 Essential (primary) hypertension; J45.909 Unspecified asthma, uncomplicated; Z79.1 Long term (current) use of non-steroidal anti-inflammatories (NSAID); Z79.899 Other long term (current) drug therapy
CPT/HCPCS: 87428; 99284; Q0162; 99283

== ENCOUNTER 2024-12-05 12:16 | Emergency (ER) | payer MEDICAID ==
[2024-12-05] MEDS ORDERED: Sodium Chloride 0.9% 10 ML Syringe FLUSH PRN (12:37)
[2024-12-05] MEDS: Ondansetron 4 MG/2 ML SDV IVPUSH ONE (12:46)
[2024-12-05] MEDS: fentaNYL 100 MCG/2 ML SDV IVPUSH ONE (12:48)
[2024-12-05] MEDS: Sodium Chloride 0.9% 1,000 ML IV ONE (12:49)
[2024-12-05 12:51] LABS: BASOPHILS PERCENT AUTO 0.3 % (0.0-1.0); EOSINOPHILS PERCENT AUTO 2.8 % (1.0-3.0); HEMATOCRIT 42.6 % (37.0-47.0); HEMOGLOBIN 14.4 g/dL (12.0-16.0); LYMPHOCYTES PERCENT AUTO 13.9 % (20.5-50.1); MEAN CORPUSCULAR HEMOGLOBIN 27.6 pg (27.0-34.0); MEAN CORPUSCULAR HGB CONC 33.8 g/dL (33.0-35.0); MEAN CORPUSCULAR VOLUME 81.8 fL (80-100); MONOCYTES PERCENT AUTO 3.2 % (2-8); NEUTROPHILS PERCENT AUTO 79.8 % (42.2-75.2); PLATELET COUNT,PLT 246 10^3/uL (150-450); RED BLOOD CELL COUNT 5.21 10^6/uL (4.2-5.4); WHITE BLOOD CELL COUNT,WBC 11.7 10^3/uL (5.0-10.0)
[2024-12-05 12:53] LABS: APPEARANCE,URINE CLOUDY (CLEAR); COLOR,URINE DARK YELLOW (YELLOW)
[2024-12-05 12:55] LABS: PROTEIN,URINE 100 (NEGATIVE)
[2024-12-05 12:56] LABS: BILIRUBIN,URINE SMALL (NEGATIVE); GLUCOSE,URINE NEGATIVE (NEGATIVE); KETONES,URINE NEGATIVE (NEGATIVE); NITRITE,URINE NEGATIVE (NEGATIVE); OCCULT BLOOD,URINE LARGE (NEGATIVE); UROBILINOGEN,URINE 0.2 mg/dL (0.2-1.0)
[2024-12-05 12:57] LABS: LEUKOCYTE ESTERASE,URINE TRACE (NEGATIVE)
[2024-12-05 13:01] LABS: AMORPHOUS SEDIMENT,URINE FEW /HPF (NOT SEEN); BACTERIA,URINE RARE /HPF (0-FEW/HPF); EPITHELIAL CELLS,URINE RARE /HPF (NOT SEEN); MUCUS,URINE FEW /LPF (NOT SEEN); RBC,URINE PACKED /HPF (0-5)
[2024-12-05 13:08] LABS: A/G RATIO 0.8; ALBUMIN 3.6 g/dL (3.4-5.0); ANION GAP 14.7 mEq/L (7-13); BUN/CREATININE RATIO 13.4 (No establ ref range); CALCIUM 9.3 mg/dL (8.5-10.1); CREATININE 0.82 mg/dL (0.55-1.02); EST CRCL DRUG DOSING (CG) 111.51 mL/min; POTASSIUM,K 3.7 mmol/L (3.5-5.1); PROTEIN TOTAL,TP 8.1 g/dL (6.4-8.2)
[2024-12-05] MEDS: Ketorolac 30 MG/ML SDV IVPUSH ONE (13:37)
[2024-12-05] MEDS: Dexamethasone 4 MG/ML SDV IVPUSH ONE (14:01)
[2024-12-05] MEDS: cefTRIAXone 2 GM Vial IVPUSH ONE (14:02)
[2024-12-05] MEDS: Take Home: Doxycycline 100 MG Cap, 4 Cap Pack PO ONE (14:23)
[2024-12-05 15:12] VITALS: BP 94/53
[2024-12-05 15:24] VITALS: PULSE 87
[2024-12-09 13:43] LABS: C.TRACHOMATIS BY TMA Negative (Negative); M GENITALIUM Negative (Negative); M GENITALIUM SOURCE Urine; N.GONORRHOEAE BY TMA Negative (Negative); SOURCE Urine
== END 2024-12-05 15:22 | disposition home or self-care (01) ==
LOC: DL.ED 12:16
DX: R10.2 Pelvic and perineal pain (principal); I10 Essential (primary) hypertension; J45.909 Unspecified asthma, uncomplicated; Z79.899 Other long term (current) drug therapy; Z90.49 Acquired absence of other specified parts of digestive tract
CPT/HCPCS: 36415; 76830; 80053; 81001; 81025; 83735; 84702; 85025; 86140; 87086; 87491; 87563; 87591; 96374; 96375; 99283; 99284; A9270; J0696; J1100; J1885; J2405; J3010; J7030

== ENCOUNTER 2025-05-17 15:04 | Emergency (ER) | payer BC, MEDICAID ==
[2025-05-17] MEDS: Ketorolac 30 MG/ML SDV IVPUSH ONE (15:46)
[2025-05-17] MEDS: Promethazine 25 MG/ML SDV IM ONE (15:46)
[2025-05-17] MEDS: Iopamidol 612 MG/ML 100 ML Bottle IVPUSH ONE (16:41)
[2025-05-17 17:56] LABS: LACTIC ACID 0.7 mmol/L (0.4-2.0)
[2025-05-17] MEDS: Take Home: traMADol 50 MG, 4 Tab Pack PO ONE (19:12)
[2025-05-17] MEDS: methylPREDNISolone 4 MG Tab 21 Tab/Dosepak PO SCH (19:13)
[2025-05-17 19:25] VITALS: BP 115/69; PULSE 71
== END 2025-05-17 19:20 | disposition home or self-care (01) ==
LOC: DL.ED 15:04
DX: K52.9 Noninfective gastroenteritis and colitis, unspecified (principal); I10 Essential (primary) hypertension; J45.909 Unspecified asthma, uncomplicated; Z79.899 Other long term (current) drug therapy
CPT/HCPCS: 36415; 74177; 83605; 83690; 86140; 96361; 96372; 96374; 96375; 99284; A9270; J1171; J1885; J2550; J3360; J7030; J7509; Q9967

== ENCOUNTER 2025-07-04 03:32 | Emergency (ER) | payer BC, MEDICAID ==
[2025-07-04] MEDS: Ondansetron 4 MG Tab.DIS PO ONE (03:52)
[2025-07-04] MEDS ORDERED: Sodium Chloride 0.9% 10 ML Syringe FLUSH PRN (03:59)
[2025-07-04] MEDS: GI Cocktail Oral Solution 30 ML PO ONE (04:04)
[2025-07-04 04:29] LABS: BASOPHILS PERCENT AUTO 0.2 % (0.0-1.0); EOSINOPHILS PERCENT AUTO 1.1 % (1.0-3.0); LYMPHOCYTES PERCENT AUTO 30.3 % (20.5-50.1); MONOCYTES PERCENT AUTO 4.4 % (2-8); NEUTROPHILS PERCENT AUTO 64.0 % (42.2-75.2); PLATELET COUNT,PLT 294 10^3/uL (150-450); RED BLOOD CELL COUNT 5.26 10^6/uL (4.2-5.4); WHITE BLOOD CELL COUNT,WBC 8.2 10^3/uL (5.0-10.0)
[2025-07-04 04:41] LABS: A/G RATIO 0.9; ALANINE AMINOTRANSFERASE,ALT 151.0 U/L (14-59); ASPARTATE AMNIOTRANSFERASE,AST 111.0 U/L (15-37); BILIRUBIN TOTAL 2.5 mg/dL (0.2-1.0); BLOOD UREA NITROGEN,BUN 8.0 mg/dL (7-18); CARBON DIOXIDE,CO2 26.0 mmol/L (21-32); CHLORIDE,CL 103.0 mmol/L (98-107); CREATININE 0.77 mg/dL (0.55-1.02); EST CRCL DRUG DOSING (CG) 93.19 mL/min; GLUCOSE RANDOM 93.0 mg/dL (70-99); POTASSIUM,K 3.4 mmol/L (3.5-5.1); PROTEIN TOTAL,TP 8.6 g/dL (6.4-8.2); SODIUM,NA 140.0 mmol/L (136-145)
[2025-07-04 04:42] LABS: ESTIMATED GFR 110.0 mL/min (>=60)
[2025-07-04] MEDS: fentaNYL 100 MCG/2 ML SDV IVPUSH ONE ×2 (04:42→07:31)
[2025-07-04] MEDS: fentaNYL 100 MCG/2 ML SDV IVPUSH PRN (05:16)
[2025-07-04] MEDS: fentaNYL 100 MCG/2 ML SDV ONE (05:59)
[2025-07-04 06:14] LABS: APPEARANCE,URINE CLEAR (CLEAR); GLUCOSE,URINE NEGATIVE (NEGATIVE); OCCULT BLOOD,URINE NEGATIVE (NEGATIVE)
[2025-07-04 06:22] LABS: EPITHELIAL CELLS,URINE FEW /HPF (NOT SEEN)
[2025-07-04] MEDS: Iopamidol 612 MG/ML 100 ML Bottle IVPUSH ONE (06:22)
[2025-07-04 08:50] VITALS: BP 115/94; PULSE 68
== END 2025-07-04 08:50 ==
LOC: DL.ED 03:32
DX: K80.81 Other cholelithiasis with obstruction (principal); R17 Unspecified jaundice; I10 Essential (primary) hypertension; Z79.899 Other long term (current) drug therapy
CPT/HCPCS: 36415; 74177; 80053; 81001; 83735; 84703; 85025; 96361; 96374; 96375; 96376; 99284; 99285; A9270; J2470; J3010; J7030; Q9967